=== PATIENT | male | born 1985 | race Caucasian/White ===

== ENCOUNTER 2020-12-21 10:54 | Outpatient (CLI) | payer MEDICAID, SELFPAY ==
--- NOTE | ~2020-12-21 | XR_ITS ---
XR hip RT min 2V DATE: 12/21/2020 11:15 INDICATION: Right hip pain for one year. No known injury TECHNIQUE: AP and lateral views COMPARISON: None FINDINGS: No fracture, dislocation, avascular necrosis or bone destruction. There is minimal spurring of the right femoral head. IMPRESSION: Mild osteoarthritis Reviewed, dictated and finalized at location B. IMPRESSION: Mild osteoarthritis
== END 2020-12-21 10:55 | disposition home or self-care (01) ==
LOC: CHSIMG 10:57
PROVIDERS: PCP Family Medicine; Visit Provider Family Medicine
DX: M25.551 Pain in right hip (principal)
CPT/HCPCS: 73502